=== PATIENT | male | born 1985 | race Caucasian/White ===

== ENCOUNTER 2016-05-21 18:49 | Emergency (ER) | payer SELFPAY ==
[~2016-05-21] VITALS: Ht 185.4 cm; Wt 79.4 kg
[2016-05-21 19:01] VITALS: BP 132/62
[2016-05-21 19:30] VITALS: BP 132/62
--- NOTE | 2016-05-21 20:44 | Emergency Room Report ---
History of Present Illness General Chief Complaint: Behavioral Complaint Source: EMS Present Illness HPI 31 YO male presents to the ED brought by ambulance for anxiety. pt. was found hiding in a bathroom stall at the store. pt .denies complaints at this time. Cooperation is poor, states he wants to leave. Pt. refuses to answer questions. Per EMS has hx of anxiety and takes xanax (information provided by sister..to EMS). Allergies: Coded Allergies: UNABLE TO ASSESS (Unverified , 05/21/16) pt not answering questions Patient History Limited by: other - poor pt. cooperation Past Medical History: see triage record Past Surgical History: unable to obtain Pertinent Family History: unable to obtain Reviewed Nursing Documentation: PMH: Agreed, PSxH: Agreed Nursing Documentation-PMH Past Medical History: No History, Except For Hx Hypertension: Yes History Of Psychiatric Problem: Yes - anxiety Review of Systems All Other Systems: negative except mentioned in HPI Physical Exam Vital Signs Date Time Temp Pulse Resp B/P Pulse Ox O2 Delivery O2 Flow Rate FiO2 05/21/16 18:49 70 18 132/62 98 Room Air Sp02 EP Interpretation: reviewed, normal General Appearance: alert, GCS 15, non-toxic, mild distress - Pt. appears startled to be in the ED Head: normocephalic, atraumatic Eyes: bilateral eye PERRL, bilateral eye normal inspection ENT: hearing grossly normal, normal pharynx, no angioedema, normal voice Neck: full range of motion, supple/symm/no masses Respiratory: chest non-tender, lungs clear, normal breath sounds, speaking full sentences Cardiovascular #1: regular rate, rhythm, no edema Musculoskeletal: back normal, gait/station normal, normal range of motion, non- tender, no calf tenderness Neurologic: alert, oriented x3 - answers to self and city/place, responsive, motor strength/tone normal, sensory intact, speech normal Psychiatric: anxious, other - PT. refuses to answer questions, states he wants to leave, denies drug use or SI/HI Skin: normal color, no rash, warm/dry, well hydrated Lymphatic: no adenopathy Medical Decision Making PA Attestation Dr. Delatorre is my supervising Physician whom patient management has been discussed with. Diagnostic Impression: Primary Impression: Behavioral change ER Course PT. is poorly cooperative with answering questions. -VS: WNL, pt. is non-tachypneic, non-tachycardic, and cooperative during PE while I evaluated heart and lungs. pt. is NAD other than being startled and unhappy to be in the ED. No obvious physical evidence of Trauma from a limited evaluation. - INTERVENTIONS: none at this time. - I suspect recent drug use, however no signs to warrant a life-threatening condition that needs immediate intervention at this time. will allow pt .to rest , and will re-evaluate. -Pt. eloped Last Vital Signs Date Time Temp Pulse Resp B/P Pulse Ox O2 Delivery O2 Flow Rate FiO2 05/21/16 19:01 18 132/62 98 Room Air 05/21/16 18:49 70 Disposition: ELOPED Referrals: NOT CHOSEN NARCISA/,REFERRING (PCP) Anabelle Saenz May 21, 2016 20:44
== END 2016-05-21 19:30 | disposition left against medical advice (07) ==
LOC: EDBD 18:49 → EMR 19:20
DX: R46.89 Other symptoms and signs involving appearance and behavior (principal); I10 Essential (primary) hypertension
CPT/HCPCS: 99283